=== PATIENT | female | born 1970 | race Two or more races ===

== ENCOUNTER 2021-01-20 14:18 | Emergency (ER) | payer OTHER ==
[~2021-01-20] VITALS: Ht 152.4 cm; Wt 100.7 kg
[2021-01-20] MEDS ORDERED: GLUMETZA1000 MG (14:41)
[2021-01-20] MEDS ORDERED: COZAAR25 MG (14:41)
[2021-01-20] MEDS ORDERED: KETO10TA2 PO (16:06)
== END 2021-01-20 16:14 | disposition home or self-care (01) ==
LOC: ER 14:18
DX: M25.562 Pain in left knee (principal); M25.561 Pain in right knee

== ENCOUNTER 2021-02-16 06:43 | Outpatient (CLI) | payer OTHER ==
[~2021-02-16 06:43] MED LIST: COZAAR25 MG; GLUMETZA1000 MG; KETO10TA2 PO
== END 2021-02-16 06:46 | disposition home or self-care (01) ==
LOC: LAB 06:43
PROVIDERS: ATTEND Obstetrics & Gynecology Gynecology
DX: E03.8 Other specified hypothyroidism (principal); E11.9 Type 2 diabetes mellitus without complications; E55.9 Vitamin D deficiency, unspecified; N39.0 Urinary tract infection, site not specified; I10 Essential (primary) hypertension; D64.9 Anemia, unspecified; D03.9 Melanoma in situ, unspecified; N95.1 Menopausal and female climacteric states; R19.00 Intra-abdominal and pelvic swelling, mass and lump, unspecified site

== ENCOUNTER 2021-02-16 08:00 | Outpatient (CLI) | payer OTHER | END 2021-02-16 08:30 | disposition home or self-care (01) | LOC: PPH VACUNA 08:00 | PROVIDERS: ATTEND Emergency Medicine Pediatric Emergency Medicine | DX: Z23 Encounter for immunization (principal) ==

== ENCOUNTER 2021-02-16 09:38 | Outpatient (CLI) | payer OTHER | END 2021-02-16 09:42 | disposition home or self-care (01) | LOC: MAMO-SONO 09:38 | PROVIDERS: ATTEND Obstetrics & Gynecology Gynecology | DX: Z12.31 Encounter for screening mammogram for malignant neoplasm of breast (principal); E04.1 Nontoxic single thyroid nodule; N39.0 Urinary tract infection, site not specified; N64.4 Mastodynia; N64.89 Other specified disorders of breast ==

== ENCOUNTER → 2022-04-05 07:31 | Outpatient (CLI) | payer OTHER | END | disposition home or self-care (01) | LOC: LAB 07:31 | PROVIDERS: ATTEND General Practice | DX: E03.9 Hypothyroidism, unspecified (principal); I11.9 Hypertensive heart disease without heart failure; E55.9 Vitamin D deficiency, unspecified; E11.9 Type 2 diabetes mellitus without complications; N39.0 Urinary tract infection, site not specified; I10 Essential (primary) hypertension; D64.9 Anemia, unspecified; R19.5 Other fecal abnormalities ==

== ENCOUNTER → 2022-05-10 08:23 | Outpatient (CLI) | payer OTHER | END | disposition home or self-care (01) | LOC: LAB 08:23 | PROVIDERS: ATTEND General Practice | DX: Z12.11 Encounter for screening for malignant neoplasm of colon (principal); R19.5 Other fecal abnormalities; I10 Essential (primary) hypertension; E11.69 Type 2 diabetes mellitus with other specified complication ==

== ENCOUNTER → 2024-02-06 06:55 | Outpatient (CLI) | payer OTHER ==
[2024-02-06 07:39] LABS: HEMATOCRIT 38.2 % (36.0-45.00); HEMOGLOBIN 13.2 g/dL (12.0-15.00); MEAN CELL VOLUME 93.7 fL (80.00-100.00); MEAN CORPUSCULAR HEMOGLOBIN 32.4 pg (27.00-32.0); MEAN CORPUSCULAR HGB CONC 34.6 g/dl (32.0-36.0); PLATELET COUNT 186 K/uL (150-450); RED BLOOD COUNT 4.08 M/uL (4.00-6.00); RED CELL DISTRIBUTION WIDTH 12.4 % (11.5-14.5)
[2024-02-06 07:49] LABS: PH,URINE 5.5 (5.0-8.0); URINE APPEARANCE Clear; URINE BILIRRUBIN Negative (NEGATIVE); URINE BLOOD Negative; URINE COLOR Yellow; URINE GLUCOSE Negative (NEGATIVE); URINE KETONE Negative (NEGATIVE); URINE LEUKOCYTE Moderate; URINE NITRATE Negative; URINE PROTEIN Negative (NEGATIVE)
[2024-02-06 07:53] LABS: URINE BACTERIA 162.7 uL (0.0-1933); URINE RBC 16.9 uL (0.0-20.8); URINE WBC 66.3 uL (0.0-23.2)
[2024-02-06 08:15] LABS: INR 1.05; PARTIAL THROMBOPLASTIN TIME 26.7 SECONDS (22.0-34.0); PROTHROMBIN TIME 11.4 SECONDS (9.0-11.5)
[2024-02-06 08:27] LABS: CALCIUM 9.7 mg/dL (8.5-10.1); CREATININE SERUM 0.82 mg/dL (0.55-1.02); GFR 72.38; POTASSIUM 4.64 mEq/L (3.5-5.1)
== END | disposition home or self-care (01) ==
LOC: LAB 06:55
DX: E11.39 Type 2 diabetes mellitus with other diabetic ophthalmic complication (principal); I15.8 Other secondary hypertension; D68.32 Hemorrhagic disorder due to extrinsic circulating anticoagulants; D69.9 Hemorrhagic condition, unspecified

== ENCOUNTER 2024-02-10 15:03 | Emergency (ER) | payer OTHER ==
[~2024-02-10] VITALS: Ht 152.4 cm; Wt 104.3 kg
[2024-02-10] MEDS ORDERED: [UNRECOGNIZED DRUG - OTHER] (15:21)
[2024-02-10] MEDS ORDERED: KETOROLAC TROMETHAMINE 30 MG VIAL IM STA (17:37)
[2024-02-10] MEDS ORDERED: DICLOFENAC POTA50 MG PO (19:59)
== END 2024-02-10 20:41 | disposition home or self-care (01) ==
LOC: ER 15:05
DX: S83.8X1A Sprain of other specified parts of right knee, initial encounter (principal); X58.XXXA Exposure to other specified factors, initial encounter; Y93.89 Activity, other specified; Y92.89 Other specified places as the place of occurrence of the external cause; Y99.8 Other external cause status; I10 Essential (primary) hypertension; E11.9 Type 2 diabetes mellitus without complications; Z79.84 Long term (current) use of oral hypoglycemic drugs; Z91.018 Allergy to other foods

== ENCOUNTER 2024-03-10 06:52 | Outpatient (CLI) | payer OTHER ==
[~2024-03-10 06:52] MED LIST changes: +DICLOFENAC POTA50 MG PO; +[UNRECOGNIZED DRUG - OTHER]
[2024-03-10 07:30] LABS: PH,URINE 5.5 (5.0-8.0); URINE APPEARANCE Clear; URINE BILIRRUBIN Negative (NEGATIVE); URINE BLOOD Negative; URINE COLOR Yellow; URINE GLUCOSE Negative (NEGATIVE); URINE KETONE Negative (NEGATIVE); URINE LEUKOCYTE Moderate; URINE NITRATE Negative; URINE PROTEIN Negative (NEGATIVE); URINE UROBILINOGEN 0.2 E.U./dl
[2024-03-10 07:32] LABS: URINE BACTERIA 299.7 uL (0.0-1933); URINE EPITHELIAL CELLS 12.3 uL (0.0-38.8); URINE WBC 135.1 uL (0.0-23.2)
[2024-03-10 07:37] LABS: URINE CAST 0.14 uL (0.0-1.40)
[2024-03-10 07:57] LABS: HEMATOCRIT 39.7 % (36.0-45.00); HEMOGLOBIN 13.7 g/dL (12.0-15.00); MEAN CELL VOLUME 92.5 fL (80.00-100.00); MEAN CORPUSCULAR HEMOGLOBIN 31.8 pg (27.00-32.0); MEAN CORPUSCULAR HGB CONC 34.4 g/dl (32.0-36.0); PLATELET COUNT 199 K/uL (150-450); RED BLOOD COUNT 4.29 M/uL (4.00-6.00); RED CELL DISTRIBUTION WIDTH 12.7 % (11.5-14.5)
[2024-03-10 08:42] LABS: INR 1.02; PROTHROMBIN TIME 11.1 SECONDS (9.0-11.5)
[2024-03-10 08:45] LABS: CALCIUM 9.4 mg/dL (8.5-10.1); CREATININE SERUM 0.8 mg/dL (0.55-1.02); GFR 74.47; POTASSIUM 4.28 mEq/L (3.5-5.1)
== END 2024-03-10 06:57 | disposition home or self-care (01) ==
LOC: LAB 06:52
DX: E11.39 Type 2 diabetes mellitus with other diabetic ophthalmic complication (principal); I15.8 Other secondary hypertension; D68.32 Hemorrhagic disorder due to extrinsic circulating anticoagulants; D69.9 Hemorrhagic condition, unspecified